=== PATIENT | female | born 1960 | race Caucasian/White ===

== ENCOUNTER 2017-04-22 18:24 | Emergency (ER) | payer OTHER ==
--- NOTE | 2017-04-22 18:26 | PDOC ---
History of Present Illness - General History Source: Patient, Old Records Exam Limitations: No Limitations - History of Present Illness Initial Comments: 04/22/17 18:38 The patient is a 57 year old female who presents to the emergency department with right rib and back pain and left ankle pain for two weeks. The patient states that she was walking her dog down a flight of stairs when she tripped and fell. The patient states that she has been taking over the counter pain medication at home with minimal relief of symptoms. <Celestine Troncoso - Last Filed: 04/22/17 18:47> <Trupti Joshi - Last Filed: 04/22/17 19:05> - General Chief Complaint: Injury Stated Complaint: FELL, R RIB, AMADOR, L ANKLE PAIN Time Seen by Provider: 04/22/17 18:26 Past History <Celestine Troncoso - Last Filed: 04/22/17 18:47> <Trupti Joshi - Last Filed: 04/22/17 19:05> - Past Medical History Allergies/Adverse Reactions: Allergies Allergy/AdvReac Type Severity Reaction Status Date / Time No Known Allergies Allergy Verified 04/22/17 18:26 Home Medications: Ambulatory Orders Amphetamine [Adzenys Xr-Odt] 12.5 mg PO ASDIR 04/22/17 Amphetamine [Adzenys Xr-Odt] 25 mg PO DAILY 04/22/17 Diazepam 10 mg PO TID 04/22/17 Fluoxetine HCl 40 mg PO DAILY 04/22/17 Review of Systems - Review of Systems Able to Perform ROS?: Yes Comments:: 04/22/17 18:38 GENERAL/CONSTITUTIONAL: No fever or chills. No weakness. HEAD, EYES, EARS, NOSE AND THROAT: No change in vision. No ear pain or discharge. No sore throat. GASTROINTESTINAL: No nausea, vomiting, diarrhea or constipation. GENITOURINARY: No dysuria, frequency, or change in urination. CARDIOVASCULAR: No chest pain or shortness of breath. RESPIRATORY: No cough, wheezing, or hemoptysis. MUSCULOSKELETAL: (+) Right rib pain, right back pain. Left ankle pain. SKIN: No rash NEUROLOGIC: No headache, vertigo, loss of consciousness, or change in strength/ sensation. ENDOCRINE: No increased thirst. No abnormal weight change. HEMATOLOGIC/LYMPHATIC: No anemia, easy bleeding, or history of blood clots. ALLERGIC/IMMUNOLOGIC: No hives or skin allergy. <Celestine Troncoso - Last Filed: 04/22/17 18:47> *Physical Exam - Physical Exam Comments: 04/22/17 18:38 GENERAL: Awake, alert, and fully oriented, in no acute distress HEAD: No signs of trauma EYES: PERRLA, EOMI, sclera anicteric, conjunctiva clear ENT: Auricles normal inspection, hearing grossly normal, nares patent, oropharynx clear without exudates. Moist mucosa NECK: Normal ROM, supple, no lymphadenopathy, JVD, or masses LUNGS: Breath sounds equal, clear to auscultation bilaterally. No wheezes, and no crackles HEART: Regular rate and rhythm, normal S1 and S2, no murmurs, rubs or gallops ABDOMEN: Soft, nontender, normoactive bowel sounds. No guarding, no rebound. No masses MUSCULOSKELETAL: (+) Right sided rib tenderness of mid axillary and mid clavicular lines of lower ribs. Soft tissue tenderness anterior to left lateral malleolus. Normal range of motion, no edema. No clubbing or cyanosis. No cords , erythema. NEUROLOGICAL: Cranial nerves II through XII grossly intact. Normal speech, normal gait SKIN: Warm, Dry, normal turgor, no rashes or lesions noted. <Celestine Troncoso - Last Filed: 04/22/17 18:47> Medical Decision Making - Medical Decision Making 04/22/17 19:[address] Pelaez at shift change. Awaiting XR of R ribs and L ankle. <Trupti Joshi - Last Filed: 04/22/17 19:05> *DC/Admit/Observation/Transfer - Attestations Scribe Attestion: 04/22/17 18:38 Documentation prepared by Celestine Troncoso, acting as medical center director for Trupti Joshi MD. <Celestine Troncoso - Last Filed: 04/22/17 18:47> <Trupti Joshi - Last Filed: 04/22/17 19:05> Diagnosis at time of Disposition: Rib pain on right side Left ankle sprain Qualifiers: Encounter type: initial encounter Involved ligament of ankle: unspecified ligament Qualified Code(s): S93.402A - Sprain of unspecified ligament of left ankle, initial encounter; S93.402A - Sprain of unspecified ligament of left ankle, initial encounter - Discharge Dispostion Condition at time of disposition: Stable
[2017-04-22 18:42] VITALS: BP 140/78; PULSE 116; TEMP 99.2; BMI 32.1
--- NOTE | 2017-04-22 19:54 | PDOC ---
*Physical Exam - Vital Signs Last Vital Signs Temp Pulse Resp BP Pulse Ox 99.2 F 116 H 16 140/78 97 04/22/17 18:25 04/22/17 18:25 04/22/17 18:25 04/22/17 18:25 04/22/17 18:25 Medical Decision Making - Medical Decision Making 04/22/17 19:57 I received signout on patient. Rib xrays appear normal; no acute fractures. Ankle also normal. Pt has no swelling of the tom and nikki is ambulatory. SHe will be given an sandra wrap and ecouraged to use tylenol/motrin and to rest. Pt will follow with her PMD as needed, or at a local clinic as needed. *DC/Admit/Observation/Transfer Diagnosis at time of Disposition: Rib pain on right side Left ankle sprain Qualifiers: Encounter type: initial encounter Involved ligament of ankle: unspecified ligament Qualified Code(s): S93.402A - Sprain of unspecified ligament of left ankle, initial encounter - Discharge Dispostion Disposition: HOME Condition at time of disposition: Stable - Referrals Referrals: Edinson Maradiaga [Primary Care Provider] - - Patient Instructions Printed Discharge Instructions: DI for Rib Contusion, DI for Ankle Sprain - Post Discharge Activity
== END 2017-04-22 20:00 | disposition home or self-care (01) ==
LOC: SUPCPDRO 18:24 → FER 18:24
DX: R07.81 Pleurodynia (principal); S93.402A Sprain of unspecified ligament of left ankle, initial encounter; W10.9XXA Fall (on) (from) unspecified stairs and steps, initial encounter; Y93.K1 Activity, walking an animal; Y92.9 Unspecified place or not applicable; X58.XXXA Exposure to other specified factors, initial encounter; Y93.89 Activity, other specified
CPT/HCPCS: 71101-TC-RT; 73610-TC-LT; 73630-TC-LT; 99283-25

== ENCOUNTER 2018-11-04 00:39 | Emergency (ER) | payer OTHER ==
[2018-11-04 00:46] VITALS: BP 128/73; PULSE 75; TEMP 97.4; BMI 32.2
[2018-11-04] MEDS ORDERED: CYCLOBENZAPRINE HCL 10 MG TABLET (FP) PO ONE (00:53)
[2018-11-04] MEDS ORDERED: CYCLOBENZAPRINE HCL 10 MG TABLET (FP) ONE (00:54)
--- NOTE | 2018-11-04 00:58 | PDOC ---
History of Present Illness - General Chief Complaint: Pain, Acute Stated Complaint: NECK PAIN Time Seen by Provider: 11/04/18 00:53 History Source: Patient Exam Limitations: No Limitations - History of Present Illness Initial Comments: 11/04/18 00:55 This is a 58-year-old female comes in complaining of neck spasm times several days progressive. Patient said she was lifting some heavy things and doing something she probably should've and now she has a spasm in her neck. Patient otherwise denies any numbness or tingling or any weakness of her extremities. Patient hasn't taken anything for the pain or spasm.. Allergies: as per nursing notes Past Medical History: none Social history: Lives with family. No smoking. No alcohol. No illicit drugs. Surgical history: None General: No fevers or chills, no weakness, no weight loss HEENT: No change in vision. No sore throat,. No ear pain + Neck pain/spasm CardioVascular: no chest discomfort. No shortness of breath Respiratory:No cough, or wheezing. Gastrointestinal: no nausea, vomiting, diarrhea or constipation, No rectal bleeding Genitourinary: No dysuria, hematuria, or frequency Musculoskeletal: No joint or muscle pain or swelling Neurologic: No headache, vertigo, dizziness or loss of consciousness Psychiatric: nor depression Skin: No rashes or easy bruising Endocrine: no increased thirst or abnormal weight change Allergic: no skin or latex allergy All other systems reviewed and normal GENERAL: The patient is awake, alert, and fully oriented, in no acute distress. HEAD: Normal with no signs of trauma. Neck: There is tenderness and spasm on palpation of the right lateral neck. There is decreased range of motion secondary to the pain and spasm. Neurovascular is intact EYES: Pupils equal, round and reactive to light, extraocular movements intact, sclera anicteric, conjunctiva clear. EXTREMITIES:atraumatic, Normal range of motion, no edema. NEUROLOGICAL: Normal speech, normal gait. PSYCH: Normal mood, normal affect. SKIN: Warm, Dry, normal turgor, no rashes or lesions noted. Past History - Past Medical History Allergies/Adverse Reactions: Allergies Allergy/AdvReac Type Severity Reaction Status Date / Time No Known Allergies Allergy Verified 04/22/17 18:26 Home Medications: Ambulatory Orders Amphetamine [Adzenys Xr-Odt] 12.5 mg PO ASDIR 04/22/17 Amphetamine [Adzenys Xr-Odt] 25 mg PO DAILY 04/22/17 Diazepam 10 mg PO TID 04/22/17 Fluoxetine HCl 40 mg PO DAILY 04/22/17 Cyclobenzaprine HCl [Flexeril 10 mg] 10 mg PO BID PRN #20 tablet 11/04/18 COPD: No GI Disorders: Yes Psychiatric Problems: Yes (DEPRESSION/ANXIETY) - Suicide/Smoking/Psychosocial Hx Smoking History: Never smoked Hx Alcohol Use: No Drug/Substance Use Hx: No *Physical Exam - Vital Signs Last Vital Signs Temp Pulse Resp BP Pulse Ox 97.4 F L 75 16 128/73 100 11/04/18 00:42 11/04/18 00:42 11/04/18 00:42 11/04/18 00:42 11/04/18 00:42 *DC/Admit/Observation/Transfer Diagnosis at time of Disposition: Muscle spasms of neck - Discharge Dispostion Disposition: HOME Condition at time of disposition: Stable Decision to Admit order: No - Referrals - Patient Instructions Additional Instructions: For the spasm take Flexeril one tablet as often as twice a day you with that it may make you drowsy so limited to the nighttime hours if possible. Addition to the Flexeril which is a muscle relaxant U can apply some gentle either moisture dry heat to the area of spasm. Return to the emergency department immediately with ANY new, persistent or worsening symptoms. Continue any medications as previously prescribed by your physician. You should follow up with your primary doctor as soon as possible regarding today's emergency department visit. . Please make sure your doctor reviews the results of your emergency evaluation. Thank you for coming to the Emergency Department today for your care. It was a pleasure to see you today. Please note that your evaluation is INCOMPLETE until you follow-up with your doctor. - Post Discharge Activity
== END 2018-11-04 01:01 | disposition home or self-care (01) ==
LOC: FER 00:39
DX: R25.2 Cramp and spasm (principal); F41.8 Other specified anxiety disorders
CPT/HCPCS: 99282-25